=== PATIENT | female | born 1960 | race Caucasian/White ===

== ENCOUNTER → 2018-01-05 | Outpatient (CLI) | payer OTHER | LOC: M.RAD 09:34 | DX: R05 Cough (principal); F17.210 Nicotine dependence, cigarettes, uncomplicated ==

== ENCOUNTER → 2018-06-10 | Outpatient (CLI) | payer OTHER | LOC: M.RAD 11:15 | DX: J44.1 Chronic obstructive pulmonary disease with (acute) exacerbation (principal); Z90.49 Acquired absence of other specified parts of digestive tract ==

== ENCOUNTER → 2018-06-15 | Outpatient (CLI) | payer OTHER | LOC: M.RAD 07:09 | DX: Z12.31 Encounter for screening mammogram for malignant neoplasm of breast (principal) ==

== ENCOUNTER → 2018-07-26 | Outpatient (CLI) | payer OTHER | LOC: M.ULTRA 12:46 | DX: I73.9 Peripheral vascular disease, unspecified (principal); M25.511 Pain in right shoulder; M79.672 Pain in left foot; G89.29 Other chronic pain; Z87.891 Personal history of nicotine dependence ==

== ENCOUNTER 2019-02-20 13:03 | Inpatient (IN) | payer OTHER ==
[~2019-02-20] VITALS: Ht 157.5 cm; Wt 69.4 kg
[2019-02-20 13:25] VITALS: BP 136/97
[2019-02-20] MEDS ORDERED: LEXAPRO 10 MG T10 M1 PO (13:29)
[2019-02-20] MEDS ORDERED: LEVSIN-SL0.125 MG SUBLING (13:30)
[2019-02-20] MEDS ORDERED: CIPRO500 MG PO (13:30)
[2019-02-20] MEDS ORDERED: FLAGYL500 M1 PO (13:31)
[2019-02-20 14:20] LABS: URINE BILIRUBIN NEGATIVE (Negative); URINE BLOOD 1+ (Negative); URINE CLARITY CLEAR; URINE COLOR YELLOW; URINE GLUCOSE-RANDOM NEGATIVE (Negative); URINE KETONES NEGATIVE (Negative); URINE LEUKOCYTES-REFLEX NEGATIVE (Negative); URINE NITRITE-REFLEX NEGATIVE (Negative); URINE PROTEIN NEGATIVE (Negative); URINE UROBILINOGEN 0.2 E.U./dl (0.2-1.0)
[2019-02-20 14:28] LABS: MUCUS None Seen strn/LPF (None Seen); SQUAMOUS >10 Many /LPF (0-3)
[2019-02-20 14:29] LABS: BACTERIA-REFLEX 1-9 Few /HPF (None Seen); CASTS None Seen /LPF (None Seen); CRYSTALS None Seen /LPF (None Seen); URINE RBC 0-2 Rare /HPF (0-2); URINE WBC-REFLEX None Seen /HPF (0-5)
[2019-02-20 14:34] LABS: ABSOLUTE BASOPHILS 0.1 thou/uL (0.0-0.2); ABSOLUTE EOSINOPHILS 0.1 thou/uL (0.0-0.7); ABSOLUTE MONOCYTES 0.5 thou/uL (0.0-1.2); ABSOLUTE NEUTROPHILS 10.3 thou/uL (1.6-8.1); BASOPHILS 0.7 %; EOSINOPHILS 0.4 %; HEMATOCRIT 44.8 % (37.0-47.0); HEMOGLOBIN 15.3 gm/dL (12.0-15.0); LYMPHOCYTES 15.1 %; MCH 31.7 pg (26.0-34.0); MCV 93.1 fL (80.0-100.0); MPV 7.5 fl. (7.2-11.1); NUCLEATED RBCS 0 /100WBC; PLATELET COUNT* 387 thou/uL (150-400); POLYS 79.8 %; RBC 4.82 mil/uL (4.20-5.00); RDW-CV 12.5 % (10.5-14.5); WBC 12.9 thou/uL (4.0-11.0)
[2019-02-20 14:46] LABS: CALCIUM 9.6 mg/dL (8.5-10.1); CREATININE 0.7 mg/dL (0.6-1.3); POTASSIUM 3.7 mmol/L (3.5-5.1)
[2019-02-20 14:50] LABS: ALBUMIN 3.8 g/dL (3.4-5.0); TOTAL BILIRUBIN 0.6 mg/dL (<0.1-1.0); TOTAL PROTEIN 7.9 g/dL (6.4-8.2)
[2019-02-20 19:30] VITALS: BP 137/75
[2019-02-20 19:50] VITALS: BP 147/93
--- NOTE | 2019-02-21 05:23 | NUR ---
PT ADMITTED TO UNIT FROM ER @ 1940. VSS ON RA. ASSESSMENT COMPLETED AND DOCUMENTED. WITH PT DURING ADMISSION. CRAMPING PAIN PRESENT ON ABD. PAIN MEDS GIVEN THIS SHIFT, NOTING RELIEFS. NAUSEA NOTED ON ADMISSION, PT REFUSED ZOFRAN EARLY IN THE SHIFT BUT TOOK IT LATER ON IN THE SHIFT. PT ORIENTED TO ROOM AND CALL LIGHT. ON CDIFF ISOLATION PRECAUTION, PENDING CDIFF LAB RESULT. CALL LIGHT WITHIN REACH. HOURLY ROUNDINGS MADE. WILL CONTINUE PLAN OF CARE.
[2019-02-21 08:14] VITALS: BP 107/60
--- NOTE | 2019-02-21 16:51 | NUR ---
ASSUMED CARE AT 0730. ALERT ORIENTED PLEASANT COOPPERATIVE. HX OF ABD PAIN DX ACUTE DIVERTICULITIS. IN ISOLATION FRO POSSIBLE C DIFF HAD A FORMED BM THIS AFTERNOON. VOIDS IN TOILET UP AD KELL. TAKING CLEAR LIQUID DIET WELL NO C/O ABD PAIN. IV INFUSING WITHOUT ISSUES IV ANTIBIOTICS X 2. STOOL SENT AT 0400 FOR C DIFF. DENIES REQUESTS.
[2019-02-21 19:34] VITALS: BP 126/74
[2019-02-21 19:40] VITALS: BP 150/86
[2019-02-22 04:19] LABS: ABSOLUTE EOSINOPHILS 0.1 thou/uL (0.0-0.7); ABSOLUTE LYMPHOCYTES 1.8 thou/uL (0.8-5.3); ABSOLUTE MONOCYTES 0.5 thou/uL (0.0-1.2); ABSOLUTE NEUTROPHILS 6.2 thou/uL (1.6-8.1); BASOPHILS 0.3 %; EOSINOPHILS 0.8 %; HEMATOCRIT 37.8 % (37.0-47.0); LYMPHOCYTES 21.3 %; MCH 32.1 pg (26.0-34.0); MCHC 34.2 g/dL (28.0-37.0); MONOCYTES 5.3 %; MPV 7.5 fl. (7.2-11.1); NUCLEATED RBCS 0 /100WBC; POLYS 72.3 %; RBC 4.02 mil/uL (4.20-5.00); RDW-CV 12.4 % (10.5-14.5); WBC 8.6 thou/uL (4.0-11.0)
[2019-02-22 04:55] LABS: HEMOGLOBIN 12.9 gm/dL (12.0-15.0); PLATELET COUNT* 300 thou/uL (150-400)
[2019-02-22 05:05] LABS: ALBUMIN 2.9 g/dL (3.4-5.0); CALCIUM 8.4 mg/dL (8.5-10.1); CREATININE 0.6 mg/dL (0.6-1.3); POTASSIUM 3.5 mmol/L (3.5-5.1); TOTAL BILIRUBIN 0.4 mg/dL (<0.1-1.0); TOTAL PROTEIN 6.1 g/dL (6.4-8.2)
--- NOTE | 2019-02-22 05:59 | NUR ---
PT ALERT AND ORIENTED. VSS ON RA. PT SLEPT GOOD THIS SHIFT BUT WAS UP EARLY. PT DENIES NAUSEA THIS SHIFT. NO PAIN MEDS GIVEN THIS SHIFT. PT'S DIET CHANGED FROM CLEAR LIQUID TO REGULAR DIET. IV MEDS INFUSED ORDERED. CALL LIGHT WITHIN REACH. HOURLY ROUNDINGS MADE. WILL CONTINUE PLAN OF CARE.
[2019-02-22 07:50] VITALS: BP 136/73
[2019-02-22 13:35] VITALS: BP 136/73
--- NOTE | 2019-02-22 14:30 | NUR ---
PATIENT TOLERATED REG DIET, BEHAVIORAL HEALTH PROFESSIONAL GAVE PATIENT INFORMATION ON FIBER DIET. NO COMPLAINTS OF PAIN, PATIENT STILL HAVING SOME CRAMPING. GI HERE THIS MORNING. CDIFF NEGATIVE. DR. WETZEL NOTIFIED OF RESULTS AND OK TO DISCHARGE HOME. SCRIPTS CALLED INTO [facility] PER ORDERS. VERBALIZES UNDERSTANDING OF PAPERWORK AND SCRIPTS. PATIENT AMBULATED OUT WITH AND STAFF.
== END 2019-02-22 14:15 | disposition home or self-care (01) | DRG 392 ==
LOC: M.ERS 13:03 → M.TBA-ER 16:28 → M.ORTHSURG 16:28
PROVIDERS: Internal Medicine; Nurse Practitioner Family; ADMIT Internal Medicine
DX: K57.32 Diverticulitis of large intestine without perforation or abscess without bleeding (principal); R65.10 Systemic inflammatory response syndrome (SIRS) of non-infectious origin without acute organ dysfunction; F41.9 Anxiety disorder, unspecified; F32.9 Major depressive disorder, single episode, unspecified; F17.210 Nicotine dependence, cigarettes, uncomplicated; E86.0 Dehydration; Z98.891 History of uterine scar from previous surgery; Z90.49 Acquired absence of other specified parts of digestive tract; Z90.710 Acquired absence of both cervix and uterus; Z79.2 Long term (current) use of antibiotics; Z79.899 Other long term (current) drug therapy; Z88.2 Allergy status to sulfonamides; Z88.8 Allergy status to other drugs, medicaments and biological substances

== ENCOUNTER 2021-02-01 18:50 | Emergency (ER) | payer OTHER ==
[~2021-02-01] VITALS: Ht 157.5 cm; Wt 63.5 kg
[~2021-02-01 18:50] MED LIST: CIPRO500 MG PO; FLAGYL500 M1 PO; LEVSIN-SL0.125 MG SUBLING; LEXAPRO 10 MG T10 M1 PO
[2021-02-01] MEDS ORDERED: FLONASE 0.05%50 MCG NASAL (19:05)
[2021-02-01] MEDS ORDERED: COZAAR 25MG TAB25 MG PO (19:05)
[2021-02-01] MEDS ORDERED: PROAIR HFA8.5 GM INH (19:05)
[2021-02-01] MEDS ORDERED: HYDROCODON-ACE1 EAC7 PO (21:03)
[2021-02-01] MEDS ORDERED: AUGMENTIN 500-1 EACH PO (21:03)
[2021-02-01 21:10] VITALS: BP 179/95
== END 2021-02-01 21:10 | disposition home or self-care (01) ==
LOC: M.ERS 18:50
DX: S68.621A Partial traumatic transphalangeal amputation of left index finger, initial encounter (principal); I10 Essential (primary) hypertension; J44.9 Chronic obstructive pulmonary disease, unspecified; F32.9 Major depressive disorder, single episode, unspecified; F41.9 Anxiety disorder, unspecified; F17.210 Nicotine dependence, cigarettes, uncomplicated; Z98.890 Other specified postprocedural states; Z90.49 Acquired absence of other specified parts of digestive tract; Z90.711 Acquired absence of uterus with remaining cervical stump; Z87.442 Personal history of urinary calculi; Z79.899 Other long term (current) drug therapy; Z88.2 Allergy status to sulfonamides; W31.89XA Contact with other specified machinery, initial encounter; Y93.89 Activity, other specified; Y92.89 Other specified places as the place of occurrence of the external cause; Y99.8 Other external cause status